=== PATIENT | male | born 1940 | race Caucasian/White ===

== ENCOUNTER 2021-03-13 02:57 | Emergency (ER) | payer OTHER ==
[2021-03-13] MEDS ORDERED: NA CHLORIDE 0.9% 1,000 ML ONE ×2 (03:27→07:54)
[2021-03-13 03:45] LABS: Absolute Lymphocytes (CBC) 0.1 K/uL (0.7-4.9); Basophils % 0.1 % (0-1.3); Hematocrit 48.3 % (39.6-49.0); Lymphocytes % 1.1 % (15.3-44.8); MPV 10.5 fL (7.6-11.3); RBC Red Blood Cell Count 5.35 M/uL (4.33-5.43)
[2021-03-13 03:49] LABS: Protime INR 1.3
--- NOTE | 2021-03-13 03:59 | EDPHYS ---
Physician Documentation [facility] Name: Gabriel Elizalde Age: 80 yrs Sex: Male : 1940 Arrival Date: 03/13/2021 Time: 02:59 Bed 8 Private MD: ED Physician Juvenal Welch HPI: 03/13 03:03 This 80 yrs old Male presents to ER via EMS with complaints of Dizziness, mh7 Fall Injury, Blood Pressure Problem. 03:03 The patient presents with dizziness, lightheadedness. mh7 03:04 Onset: The symptoms/episode began/occurred 2 day(s) ago. Context: occurred at home, mh7 occurred while the patient was sitting. Modifying factors: The symptoms are alleviated by nothing, the symptoms are aggravated by standing up. Associated signs and symptoms: Pertinent negatives: abdominal pain, agitation, ataxia, blurred vision, chest pain, combativeness, confusion, diaphoresis, focal weakness, head injury, headache, nausea, near-syncope, numbness, palpitations, seizure, shortness of breath, syncope, tingling, vomiting. Severity of symptoms: At their worst the symptoms were moderate last night, in the emergency department the symptoms are unchanged. Patient's baseline: Neuro: alert and fully oriented, Motor: no deficits, Ambulation: walks without assistance, Speech: normal. Historical: - Allergies: 03:03 PENICILLINS; bb 03:03 TETRACYCLINES; bb - Home Meds: 03:03 Furosemide Oral [Active]; losartan oral oral [Active]; bb - PMHx: 03:03 Hypertension; Asthma; Bronchitis; bb - PSHx: 03:03 prostate; bb - Immunization history:: Adult Immunizations unknown. - Social history:: Smoking status: unknown. ROS: 03:04 Constitutional: Negative for fever, chills, and weight loss, Eyes: Negative for injury, mh7 pain, redness, and discharge, ENT: Negative for injury, pain, and discharge, Neck: Negative for injury, pain, and swelling, Cardiovascular: Negative for chest pain, palpitations, and edema, Respiratory: Negative for shortness of breath, cough, wheezing, and pleuritic chest pain, Abdomen/GI: Negative for abdominal pain, nausea, vomiting, diarrhea, and constipation, Back: Negative for injury and pain, : Negative for injury, bleeding, discharge, and swelling, MS/Extremity: Negative for injury and deformity, Skin: Negative for injury, rash, and discoloration, Psych: Negative for depression, anxiety, suicide ideation, homicidal ideation, and hallucinations, Allergy/Immunology: Negative for hives, rash, and allergies, Endocrine: Negative for neck swelling, polydipsia, polyuria, polyphagia, and marked weight changes, Hematologic/Lymphatic: Negative for swollen nodes, abnormal bleeding, and unusual bruising. Exam: 03:04 Constitutional: This is a well developed, well nourished patient who is awake, alert, mh7 and in no acute distress. Head/Face: Normocephalic, atraumatic. Eyes: Pupils equal round and reactive to light, extra-ocular motions intact. Lids and lashes normal. Conjunctiva and sclera are non-icteric and not injected. Cornea within normal limits. Periorbital areas with no swelling, redness, or edema. Neck: Trachea midline, no thyromegaly or masses palpated, and no cervical lymphadenopathy. Supple, full range of motion without nuchal rigidity, or vertebral point tenderness. No Meningismus. Chest/axilla: Normal chest wall appearance and motion. Nontender with no deformity. No lesions are appreciated. Cardiovascular: Regular rate and rhythm with a normal S1 and S2. No gallops, murmurs, or rubs. Normal PMI, no JVD. No pulse deficits. Respiratory: Lungs have equal breath sounds bilaterally, clear to auscultation and percussion. No rales, rhonchi or wheezes noted. No increased work of breathing, no retractions or nasal flaring. Abdomen/GI: Soft, non-tender, with normal bowel sounds. No distension or tympany. No guarding or rebound. No evidence of tenderness throughout. Back: No spinal tenderness. No costovertebral tenderness. Full range of motion. Skin: Warm, dry with normal turgor. Normal color with no rashes, no lesions, and no evidence of cellulitis. MS/ Extremity: Pulses equal, no cyanosis. Neurovascular intact. Full, normal range of motion. Neuro: Awake and alert, GCS 15, oriented to person, place, time, and situation. Cranial nerves II-XII grossly intact. Motor strength 5/5 in all extremities. Sensory grossly intact. Cerebellar exam normal. Normal gait. Psych: Awake, alert, with orientation to person, place and time. Behavior, mood, and affect are within normal limits. Vital Signs: 03:00 BP 68 / 50; Pulse 103; Resp 16 S; Temp 98.9(A); Pulse Ox 90% on R/A; Weight 107.95 kg bb (R); Height 5 ft. 8 in. (172.72 cm) (R); Pain 0/10; 03:35 BP 79 / 53; Pulse 107; Resp 32 S; Pulse Ox 94% on NC; ad5 04:00 BP 56 / 44; Pulse 104; Resp 33; Pulse Ox 92% on NC; ad5 04:15 BP 59 / 39; Pulse 97; Resp 30; Pulse Ox 96% on 3 lpm NC; ad5 04:30 BP 61 / 47; Pulse 98; Resp 32; Pulse Ox 90% on NC; ad5 04:45 BP 86 / 54; Pulse 102; Resp 34; Pulse Ox 90% on NC; ad5 05:00 BP 88 / 60; Pulse 111; Resp 25; Temp 101.9; Pulse Ox 91% on NC; ad5 05:15 BP 83 / 61; Pulse 109; Resp 28 S; Pulse Ox 99% on NC; ad5 05:30 BP 80 / 61; Pulse 112; Resp 28 S; Pulse Ox 94% on 3 lpm NC; ad5 05:45 BP 79 / 50; Pulse 111; Resp 34 S; Pulse Ox 96% on 3 lpm NC; ad5 06:00 BP 75 / 50; Pulse 111; Resp 34 S; Pulse Ox 94% on NC; ad5 06:13 BP 88 / 54; Pulse 106; Resp 29; Temp 101.8(C); Pulse Ox 96% ; ea 06:15 BP 96 / 56; Pulse 106; Resp 30 S; Pulse Ox 96% on NC; ad5 06:30 BP 81 / 46; Pulse 106; Resp 26 S; Pulse Ox 96% on 3 lpm NC; ad5 07:00 BP 106 / 84; Pulse 106; Resp 24; Temp 101; Pulse Ox 91% on 3 lpm NC; ea 03:00 Body Mass Index 36.19 (107.95 kg, 172.72 cm) bb Procedures: 06:45 Central Line: the site was prepped with Betadine, in sterile fashion, a triple lumen mh7 catheter was inserted, in the right femoral vein, in 1 attempts. placement was verified, by blood return, the site was dressed with using sterile technique, the patient tolerated the procedure, well. MDM: 03:57 Differential diagnosis: generalized weakness, idiopathic dizziness, near-syncope, 7 syncope. Data reviewed: vital signs, nurses notes, EMS record, old medical records, lab test result(s), cardiac enzymes, CBC. Counseling: I had a detailed discussion with the patient and/or guardian regarding: the historical points, exam findings, and any diagnostic results supporting the discharge/admit diagnosis, lab results. Response to treatment: the patient's symptoms have mildly improved after treatment. 03:59 Patient medically screened. [facility] 06:45 Counseling: I had a detailed discussion with the patient and/or guardian regarding: the mh7 need to transfer to another facility, for higher level of care, No ICU beds available. 03/13 03:02 Order name: Basic Metabolic Panel [facility] 03/13 03:02 Order name: CBC with Diff [facility] 03/13 03:02 Order name: LFT's [facility] 03/13 03:02 Order name: Magnesium [facility] 03/13 03:02 Order name: NT PRO-BNP [facility] 03/13 03:02 Order name: PT-INR [facility] 03/13 03:02 Order name: Troponin (emerg Dept Use Only) [facility] 03/13 03:10 Order name: Blood Culture Adult (2) [facility] 03/13 03:10 Order name: Urine Culture [facility] 03/13 03:10 Order name: Influenza Screen (a \\T\\ B) [facility] 03/13 03:10 Order name: Lactate [facility] 03/13 03:10 Order name: COVID-19 : Document "Date of Symptom Onset" if Symptomatic. [facility] 03/13 03:14 Order name: Procalcitonin la1 03/13 03:23 Order name: [facility] 03/13 03:47 Order name: CBC with Automated Diff; Complete Time: 06:36 EDIA 03/13 06:20 Order name: Lipase [facility] 03/13 06:20 Order name: Basic Metabolic Panel; Complete Time: 06:36 EDIA 03/13 06:20 Order name: Liver (Hepatic) Function; Complete Time: 06:36 EDIA 03/13 06:20 Order name: Troponin (Emerg Dept Use Only); Complete Time: 06:36 EDMS 03/13 06:20 Order name: NT PRO-BNP; Complete Time: 06:36 EDMS 03/13 06:20 Order name: Magnesium; Complete Time: 06:36 EDMS 03/13 06:20 Order name: Manual Differential; Complete Time: 06:36 EDMS 03/13 06:20 Order name: Protime (+INR); Complete Time: 06:36 EDMS 03/13 06:20 Order name: Lactate; Complete Time: 06:36 EDMS 03/13 06:20 Order name: Procalcitonin; Complete Time: 06:36 EDMS 03/13 06:20 Order name: SARS-COV-2 RT PCR; Complete Time: 06:36 EDMS 03/13 06:23 Order name: Influenza Screen (A ; Complete Time: 06:36 EDMS 03/13 06:29 Order name: Lipase; Complete Time: 06:36 EDMS 03/13 06:56 Order name: Blood Culture [facility] 03/13 07:14 Order name: Lactate Sepsis 2 HR Follow-up [facility] 03/13 03:02 Order name: XRAY Chest (1 view) [facility] 03/13 03:02 Order name: EKG; Complete Time: 03:02 [facility] 03/13 03:02 Order name: Cardiac monitoring; Complete Time: 03:04 [facility] 03/13 03:02 Order name: EKG - Nurse/Tech; Complete Time: 03:04 [facility] 03/13 03:02 Order name: IV Saline Lock; Complete Time: 03:05 [facility] 03/13 03:02 Order name: Labs collected and sent; Complete Time: 03:05 [facility] 03/13 03:02 Order name: O2 Per Protocol; Complete Time: 03:05 [facility] 03/13 03:02 Order name: O2 Sat Monitoring; Complete Time: 03:05 [facility] 03/13 03:02 Order name: CT Head Brain wo Cont [facility] 03/13 03:29 Order name: CT Abd/Pelvis - Without Contrast [facility] Administered Medications: 03:30 Drug: NS 0.9% 1000 ml Route: IV; Rate: 1000 ml; Site: right wrist; ad5 06:24 Follow up: IV Status: Completed infusion; IV Intake: 1000ml ad5 03:50 Drug: NS 0.9% 1000 ml Route: IV; Rate: 1000 ml; Site: left antecubital; ad5 06:24 Follow up: IV Status: Completed infusion; IV Intake: 1000ml ad5 04:10 Drug: Rocephin (cefTRIAXone) 1 grams {Note: CVL R groin.} Route: IV; Rate: 1 calculated ad5 rate; Site: Other; 06:23 Follow up: Response: No adverse reaction; IV Status: Completed infusion ad5 04:10 Drug: Levophed (norepinephrine) (4 mg/250 mL D5W 4 mcg/min Route: IV; Rate: calculated ad5 rate; Site: left forearm; 07:11 Follow up: Response: No adverse reaction; IV Status: Infusion continued upon transfer ea 05:15 Drug: Tylenol 1000 mg Route: PO; ad5 06:35 Follow up: Response: No adverse reaction ad5 05:20 Drug: AZITHromycin 500 mg Route: IVPB; Infused Over: 1 hrs; Site: right femoral; ea 06:23 Follow up: Response: No adverse reaction; IV Status: Completed infusion ad5 07:03 Drug: Cefepime 1 grams Route: IVPB; Rate: 200 ml/hr; Infused Over: 30 mins; Site: right ea femoral; 07:11 Follow up: Response: No adverse reaction; IV Status: Completed infusion; IV Intake: ea 100ml 07:09 Drug: Flagyl (metroNIDAZOLE) 500 mg Volume: 100 ml; Route: IVPB; Rate: 200 ml/hr; ea Infused Over: 30 mins; Site: left hand; 07:23 Drug: LevaQUIN (levofloxacin) 500 mg Volume: 100 ml; Route: IVPB; Infused Over: 60 ea mins; Site: left forearm; Disposition: 03/13/21 06:48 Transfer ordered to [facility]. Diagnosis are Sepsis, Cholecystitis, Pneumonia, Acute Kidney Injury, Elevated Troponin. - Reason for transfer: Higher level of care. - Accepting physician is Dr. Cline. - Condition is Critical. - Problem is new. - Symptoms have improved. Signatures: Dispatcher [employer] EDMS Adrianna Little RN RN Rain Serrano RN RN hb Antunez, Elena, RN RN ea Holmes, Maurice, MD MD 7 Meek Roth ad5 Corrections: (The following items were deleted from the chart) 06:32 03:59 Hospitalization Ordered by Chadwick Prezas DO for Inpatient Admission. Preliminary [facility] diagnosis is Dehydration; Hypotension. Bed requested for Telemetry/MedSurg (Inpatient). Status is Inpatient Admission. Condition is Fair. Problem is new. Symptoms have improved. 7 07:24 06:48 03/13/2021 06:48 Transfer ordered to [facility]. ea Diagnosis is Sepsis; Cholecystitis; Pneumonia; Acute Kidney Injury; Elevated Troponin. Reason for transfer: Higher level of care. Accepting physician is Dr. Cline. Condition is Critical. Problem is new. Symptoms have improved. [facility] 07:44 07:24 03/13/2021 06:48 Transfer ordered to [facility]. hb Diagnosis is Sepsis; Cholecystitis; Pneumonia; Acute Kidney Injury; Elevated Troponin. Reason for transfer: Higher level of care. Accepting physician is Dr. Cline. Condition is Critical. Problem is new. Symptoms have improved. ea
--- NOTE | 2021-03-13 03:59 | ER ---
Nurse's Notes [facility] Name: Gabriel Elizalde Age: 80 yrs Sex: Male : 1940 Arrival Date: 03/13/2021 Time: 02:59 Bed 8 Private MD: Diagnosis: Sepsis;Cholecystitis;Pneumonia;Acute Kidney Injury;Elevated Troponin Presentation: 03/13 03:00 Chief complaint: EMS states: they were toned out for report of pt needing lift assist bb on arrival pt was hypotensive with SBP in the 60s. Coronavirus screen: pt is hypoxic on arrival sats 90% room air. Ebola Screen: No symptoms or risks identified at this time. Initial Sepsis Screen: Does the patient meet any 2 criteria? Systolic BP < 90 mmHg. HR > 90 bpm. Yes Does the patient have a suspected source of infection? No. Patient's initial sepsis screen is negative. Risk Assessment: Do you want to hurt yourself or someone else? Patient reports no desire to harm self or others. Onset of symptoms is unknown. 03:00 Method Of Arrival: [facility] bb 03:00 Acuity: LIZET 2 bb 03:05 Care prior to arrival: Medication(s) given: Normal saline infusion, 500 mL, IV bb initiated. 20 GA, in the right hand, Glucose check: 141. Historical: - Allergies: 03:03 PENICILLINS; bb 03:03 TETRACYCLINES; bb - Home Meds: 03:03 Furosemide Oral [Active]; losartan oral oral [Active]; bb - PMHx: 03:03 Hypertension; Asthma; Bronchitis; bb - PSHx: 03:03 prostate; bb - Immunization history:: Adult Immunizations unknown. - Social history:: Smoking status: unknown. Screenin:52 Abuse screen: Denies threats or abuse. Denies injuries from another. Nutritional ad5 screening: No deficits noted. Tuberculosis screening: No symptoms or risk factors identified. Fall Risk Fall in past 12 months (25 points). Secondary diagnosis (15 points) IV access (20 points). Ambulatory Aid- Crutches/Cane/Walker (15 pts). Gait- Weak (10 pts.). Mental Status- Oriented to own ability (0 pts). Total Mancilla Fall Scale indicates High Risk Score (45 or more points). Fall prevention measures have been instituted. Side Rails Up X 2 Frequent Obs/Assessments Occuring As available patient and family educated on Fall Prevention Program and Strategies. Assessment: 03:30 General: Appears ill, Behavior is calm, cooperative, appropriate for age. Pain: Denies ad5 pain. Neuro: Level of Consciousness is awake, alert, obeys commands, Oriented to person, place, time, situation, Appropriate for age System Administration Advisor are equal bilaterally Weakness Speech is normal, Facial symmetry appears normal, Pupils are PERRLA, Intact. Cardiovascular: Heart tones present Capillary refill < 3 seconds Patient's skin is warm and dry. Pulses are all present. Rhythm is regular. Cardiovascular: Respiratory: Reports cough that is productive, Airway is patent Trachea midline Respiratory effort is even, unlabored, Respiratory pattern is regular, symmetrical, tachypnea Sputum is thick, white Breath sounds are clear in right upper lobe, left upper lobe and right middle lobe Breath sounds are diminished in left posterior lower lobe, right posterior middle lobe and right posterior lower lobe. GI: Reports constipation, nausea. : No deficits noted. No signs and/or symptoms were reported regarding the genitourinary system. EENT: No deficits noted. No signs and/or symptoms were reported regarding the EENT system. Derm: Skin is intact, Skin is clammy, Skin is normal, Skin temperature is warm. 06:24 Reassessment: 03/13/21 0415 Pt with continued low BP, IV to L AC noted to have edema ad5 near site. Provider notified of pt need for additional IV access, at bedside for CVL placement at this time. Risks benefits explained to pt by provider, verbal consent by pt at bedside with RN x 2 witness for emergent CVL placement. 06:34 Reassessment: 03/13/21 0428 Pt levophed drip changed from IV site to L forearm to CVL R ad5 groin, titrated per protocol. 06:38 Reassessment: Pt cleaned of stool and brief applied. Repositioned in stretcher. Denies ad5 other needs or c/o at this time. Will continue to monitor. 06:38 Reassessment: 03/13/21 0325 Lab with critical lab value notification of K 2.8 and ad5 Lactic acid 5.6, read back/verified. Provider aware. Awaiting further orders. 07:22 Reassessment: Patient and/or family updated on plan of care and expected duration. Pain ea level reassessed. Life flight at facility for transport, report given to team. Pt left ED via stretcher per life flight team. Pt tolerating well. 07:39 Reassessment: Assisted flight medic with cleaning of very large liquid bowel movement hb clean up. Pt tolerated well. Vital Signs: 03:00 BP 68 / 50; Pulse 103; Resp 16 S; Temp 98.9(A); Pulse Ox 90% on R/A; Weight 107.95 kg bb (R); Height 5 ft. 8 in. (172.72 cm) (R); Pain 0/10; 03:35 BP 79 / 53; Pulse 107; Resp 32 S; Pulse Ox 94% on NC; ad5 04:00 BP 56 / 44; Pulse 104; Resp 33; Pulse Ox 92% on NC; ad5 04:15 BP 59 / 39; Pulse 97; Resp 30; Pulse Ox 96% on 3 lpm NC; ad5 04:30 BP 61 / 47; Pulse 98; Resp 32; Pulse Ox 90% on NC; ad5 04:45 BP 86 / 54; Pulse 102; Resp 34; Pulse Ox 90% on NC; ad5 05:00 BP 88 / 60; Pulse 111; Resp 25; Temp 101.9; Pulse Ox 91% on NC; ad5 05:15 BP 83 / 61; Pulse 109; Resp 28 S; Pulse Ox 99% on NC; ad5 05:30 BP 80 / 61; Pulse 112; Resp 28 S; Pulse Ox 94% on 3 lpm NC; ad5 05:45 BP 79 / 50; Pulse 111; Resp 34 S; Pulse Ox 96% on 3 lpm NC; ad5 06:00 BP 75 / 50; Pulse 111; Resp 34 S; Pulse Ox 94% on NC; ad5 06:13 BP 88 / 54; Pulse 106; Resp 29; Temp 101.8(C); Pulse Ox 96% ; ea 06:15 BP 96 / 56; Pulse 106; Resp 30 S; Pulse Ox 96% on NC; ad5 06:30 BP 81 / 46; Pulse 106; Resp 26 S; Pulse Ox 96% on 3 lpm NC; ad5 07:00 BP 106 / 84; Pulse 106; Resp 24; Temp 101; Pulse Ox 91% on 3 lpm NC; ea 03:00 Body Mass Index 36.19 (107.95 kg, 172.72 cm) bb ED Course: 02:59 Patient arrived in ED. bb 02:59 Juvenal Welch MD is Attending Physician. [facility] 03:02 Triage completed. bb 03:03 Arm band placed on Patient placed in an exam room, on a stretcher, on pulse oximetry. bb 03:04 Meek Roth is Primary Nurse. ad5 03:18 Patient has correct armband on for positive identification. Placed in gown. Bed in low ea position. Call light in reach. Side rails up X2. 03:35 No provider procedures requiring assistance completed. Inserted saline lock: 18 gauge ad5 in left antecubital area, using aseptic technique. Blood collected. Maintain EMS IV. Dressing intact. Good blood return noted. Site clean \T\ dry. Gauge \T\ site: 20g R wrist. 03:55 Oxygen administration via nasal cannula \T\ 2L/min Response to oxygen therapy: symptoms ea improved. 03:58 Chadwick Chi DO is Hospitalizing Provider. [facility] 04:18 Inserted saline lock: 20 gauge in left forearm, using aseptic technique. ea 04:28 Assisted provider with central line placement. Set up central line tray. Triple lumen ea line placed in right femoral. Line placed by Juvenal Welch MD Placement verified by blood return, Dressed with Tegaderm, Patient tolerated well. 04:38 Hernandez cath inserted, using sterile technique, 18 Fr., by in, balloon inflated, to ea gravity drainage, returned michael urine. Patient tolerated well. 05:15 IV discontinued, intact, bleeding controlled, No redness/swelling at site. Pressure ea dressing applied, right wrist and left AC IV. 06:20 initiated a transfer with Danni from the [facility] [place]. eb 06:35 connected the cut lace machine operator cellulose insulation helper for [facility] with Dr. Welch for patient eb transfer consultation. 06:47 administrative approval given Danni Holden Rn/ patient has been accepted to [facility] [address] [address] Bed 8/ Dr. Cline has accepted the patient in transfer/ Report to be called to the transfer center at [phone]. 06:52 [facility] called 9 minutes eta. eb 07:40 Primary Nurse role handed off by Meek Roth sv Administered Medications: 03:30 Drug: NS 0.9% 1000 ml Route: IV; Rate: 1000 ml; Site: right wrist; ad5 06:24 Follow up: IV Status: Completed infusion; IV Intake: 1000ml ad5 03:50 Drug: NS 0.9% 1000 ml Route: IV; Rate: 1000 ml; Site: left antecubital; ad5 06:24 Follow up: IV Status: Completed infusion; IV Intake: 1000ml ad5 04:10 Drug: Rocephin (cefTRIAXone) 1 grams {Note: CVL R groin.} Route: IV; Rate: 1 calculated ad5 rate; Site: Other; 06:23 Follow up: Response: No adverse reaction; IV Status: Completed infusion ad5 04:10 Drug: Levophed (norepinephrine) (4 mg/250 mL D5W 4 mcg/min Route: IV; Rate: calculated ad5 rate; Site: left forearm; 07:11 Follow up: Response: No adverse reaction; IV Status: Infusion continued upon transfer ea 05:15 Drug: Tylenol 1000 mg Route: PO; ad5 06:35 Follow up: Response: No adverse reaction ad5 05:20 Drug: AZITHromycin 500 mg Route: IVPB; Infused Over: 1 hrs; Site: right femoral; ea 06:23 Follow up: Response: No adverse reaction; IV Status: Completed infusion ad5 07:03 Drug: Cefepime 1 grams Route: IVPB; Rate: 200 ml/hr; Infused Over: 30 mins; Site: right ea femoral; 07:11 Follow up: Response: No adverse reaction; IV Status: Completed infusion; IV Intake: ea 100ml 07:09 Drug: Flagyl (metroNIDAZOLE) 500 mg Volume: 100 ml; Route: IVPB; Rate: 200 ml/hr; ea Infused Over: 30 mins; Site: left hand; 07:23 Drug: LevaQUIN (levofloxacin) 500 mg Volume: 100 ml; Route: IVPB; Infused Over: 60 ea mins; Site: left forearm; Intake: 06:24 IV: 1000ml; Total: 1000ml. ad5 06:24 IV: 1000ml; Total: 2000ml. ad5 07:11 IV: 100ml; Total: 2100ml. ea Outcome: 03:51 Discharged to See paper charting for further care/tx ad5 03:59 Decision to Hospitalize by Provider. 7 06:48 ER care complete, transfer ordered by MD. [facility] 07:17 Transferred by helicopter to [facility], Transfer form completed. ad5 07:17 Condition: stable 07:17 Instructed on the need for admit. 07:24 Patient left the ED. ea 07:44 Patient left the ED. hb Signatures: Gudelia Montelongo, RN RN Adrianna Lewis RN RN bb Baxter, Heather, RN RN Jazzy Gee RN RN ea Botello, Elizabeth eb Holmes, Maurice, MD MD [facility] Meek Roth ad5 Corrections: (The following items were deleted from the chart) 06:29 03:35 No provider procedures requiring assistance completed. ad5 ea 07:07 06:20 initiated a transfer with Sosa from the [facility]. eb eb
[2021-03-13 04:21] LABS: Albumin 3.4 g/dL (3.4-5.0); Bilirubin Direct 1.1 mg/dL (0-0.2); Bilirubin Total 1.9 mg/dL (0.2-1.0); Potassium 2.8 mmol/L (3.5-5.1); Protein, Total 7.5 g/dL (6.4-8.2); Troponin (Emerg Dept Use Only) 0.48 ng/mL (0.0-0.045)
[2021-03-13] MEDS ORDERED: NOREPINEPHRINE 4mg/D5W 250mL 4 MG/250 ML BAG IV ONE (04:27)
[2021-03-13 04:43] LABS: Blood Morphology Comment NOT SEEN (NOT SEEN); Platelet Estimate ADEQ
[2021-03-13] MEDS ORDERED: CEFTRIAXONE 1000 MG/VIAL ONE (05:16)
[2021-03-13] MEDS ORDERED: AZITHROMYCIN 500 MG INJ IVPB ONE (05:16)
[2021-03-13] MEDS ORDERED: NA CHLORIDE 0.9% 250 ML ONE (05:16)
[2021-03-13] MEDS ORDERED: NA CHLORIDE 0.9% 50 ML ONE (05:16)
[2021-03-13] MEDS ORDERED: ACETAMINOPHEN 500 MG TAB PO ONE (05:33)
[2021-03-13] MEDS ORDERED: AZITHROMYCIN IV 500 MG in NA CHLORIDE 0.9% 250 ML IVPB ONE (05:34)
[2021-03-13] MEDS ORDERED: CEFTRIAXONE/SWI 1gm 1 GM/10 ML SYR IV ONE (05:34)
[2021-03-13] MEDS ORDERED: VASOPRESSIN IV PRN (07:07)
[2021-03-13] MEDS ORDERED: NA CHLORIDE 0.9% IV PRN (07:07)
[2021-03-13] MEDS ORDERED: METRONIDAZOLE 500mg IVPB 500 MG/100 ML BAG IV ONE (07:14)
[2021-03-13] MEDS ORDERED: Levofloxacin500mg IV 500 MG/100 ML BAG IV ONE (07:14)
[2021-03-13] MEDS ORDERED: CEFEPIME/SWI 1gm 10 ML ONE (07:14)
[2021-03-13] MEDS ORDERED: NA CHLORIDE 0.9% 100 ML ONE (07:15)
[2021-03-13 07:56] VITALS: BP 106/84; TEMP 101; O2SAT 91
--- NOTE | 2021-03-13 14:45 | RAD REPORT ---
EXAM DESCRIPTION: Chest Single View CLINICAL HISTORY: Dizziness COMPARISON: None. FINDINGS: Single frontal radiograph view of the chest. Cardiomediastinal silhouette: Atherosclerotic calcification of the thoracic aorta. Leads overlie the chest. Lungs: Patchy bibasilar opacities. No pneumothorax or large effusion. Bones: Degenerative change of the spine. Upper abdomen: No abnormality identified. IMPRESSION: 1. Patchy bibasilar opacities may be related to developing pneumonic process or atelecta sis. Electronically signed by: Willian Green 03/13/2021 4:05 AM CDT Due to temporary technical issues with the PACS/Fluency reporting system, reports are being signed by the in house radiologists without review as a courtesy to insure prompt reporting. The interpreting radiologist is fully responsible for the content of the report.
--- NOTE | 2021-03-13 16:30 | EKG ---
Test Date: 2021-03-13 Test Time: 02:59:54 Professor Of Industrial Technology: JALEESA MEASUREMENT RESULTS: Intervals: Rate: 104 [place]: 200 QRSD: 90 QT: 336 QTc: 441 [place]: P: 67 [place]: 200 QRS: -54 T: 63 INTERPRETIVE STATEMENTS: Sinus tachycardia Left axis deviation Inferior infarct, age undetermined Abnormal ECG Compared to ECG 04/17/2013 07:34:48 Left-axis deviation now present Myocardial infarct finding now present Sinus bradycardia no longer present Left anterior fascicular block no longer present Electronically Signed On 03-13-21 16:29:40 CDT by Jose Duarte
--- NOTE | 2021-03-13 16:32 | RAD REPORT ---
EXAM DESCRIPTION: CT Abdomen and Pelvis COMPARISON: None. CLINICAL HISTORY: [facility] MAIN Abd pain;Constipation TECHNIQUE: CT of the abdomen and pelvis was acquired with IV contrast material. Coronal and sagitt al reconstructions were obtained. Automated exposure control was utilized on this examination as a dose lowering technique. FINDINGS: Lung bases: Bibasilar consolidations are present. Liver: Visualized portions of the liver are normal. The superior right liver is out of the field-of-v iew. Gallbladder and biliary: Small stones and sludge are present. Gallbladder wall thickening is present with adjacent fat stranding. Unremarkable biliary tree. Pancreas: Normal. Spleen: Normal. Adrenal glands: Normal adrenal glands. Kidneys: A 1.8 cm right renal cyst is noted. Normal left kidney. Stomach and Small Bowel: Normal stomach. Mild wall thickening of the proximal duodenum is likely reac tive. The remainder of the small bowel is unremarkable. Urinary bladder: Decompressed urinary bladder with anterior right portion herniating into the right i nguinal hernia. Prostate/Male Urogenital: Enlarged prostate measuring 5.4 cm mediolateral. Colon and Appendix: Moderate sigmoid colon diverticulosis. No evidence of appendicitis. Retroperitoneum and lymph nodes: Normal. Vascular: Moderate multivessel calcified atherosclerosis. Peritoneal cavity: No ascites or free air. Musculoskeletal and soft tissues: Moderate sized right inguinal hernia containing fat and a portion o f the bladder. Thoracolumbar spondylosis. No aggressive bone lesions. No compression fracture. IMPRESSION: 1. Distended gallbladder with stones, wall thickening and adjacent fat stranding, consis tent with acute cholecystitis. 2. Wall thickening of the proximal duodenum is likely reactive. 3. The urinary bladder partially herniates into the moderate sized right inguinal hernia. 4. Prostatic hypertrophy. 5. Bibasilar consolidations may represent atelectasis, edema, or pneumonia. 6. Moderate sigmoid diverticulosis. 7. Moderate atherosclerosis. Electronically signed by: Jaime Marrero MD 03/13/2021 4:52 AM CDT Due to temporary technical issues with the PACS/Fluency reporting system, reports are being signed by the in house radiologists without review as a courtesy to insure prompt reporting. The interpreting radiologist is fully responsible for the content of the report.
--- NOTE | 2021-03-13 16:50 | RAD REPORT ---
EXAM DESCRIPTION: CT Head COMPARISON: None. CLINICAL HISTORY: [facility] MAIN DIZZINESS TECHNIQUE: Axial images were obtained from skull base to vertex without intravenous contrast. Imag es viewed on bone and brain windows. Multiplanar reformats were performed. Automated exposure contr ol was utilized on this examination as a dose lowering technique. FINDINGS: Brain parenchyma, ventricles, dura, meninges, and extra-axial spaces: Mild generalized cer ebral and cerebellar volume loss is present. Mild hypodensities in the subcortical white matter of rima th hemispheres are nonspecific but likely relate to chronic small vessel disease. No acute intracrani al hemorrhage or abnormal extra-axial fluid collections. Vascular structures: Intracranial atherosclerosis is present. Calvarium, mastoid air cells, paranasal sinuses and orbits: The calvarium is normal. A 1.5 cm subcuta neous cyst of the left posterior scalp likely represents a sebaceous cyst. The mastoid air cells are clear. Small left maxillary mucosal retention cyst or polyp. Orbital structures are unremarkable. IMPRESSION: 1. No acute intracranial abnormality. 2. Mild senescent changes. Electronically signed by: Jaime Marrero MD 03/13/2021 4:45 AM CDT Due to temporary technical issues with the PACS/Fluency reporting system, reports are being signed by the in house radiologists without review as a courtesy to insure prompt reporting. The interpreting radiologist is fully responsible for the content of the report.
== END 2021-03-13 07:44 | disposition short-term general hospital (02) ==
LOC: ER 02:57
PROC: 06HM33Z Insertion of Infusion Device into Right Femoral Vein, Percutaneous Approach (ICD-10-PCS; principal; 2021-03-13)
DX: A41.9 Sepsis, unspecified organism (principal); K81.9 Cholecystitis, unspecified; N17.9 Acute kidney failure, unspecified; J18.9 Pneumonia, unspecified organism; R77.8 Other specified abnormalities of plasma proteins; I10 Essential (primary) hypertension; Z88.0 Allergy status to penicillin; Z88.1 Allergy status to other antibiotic agents; Z20.822 Contact with and (suspected) exposure to COVID-19
CPT/HCPCS: 93005; 87040 ×2; 85025; 80048; 36415; 83735; 87205 ×3; 85610; 80076; 83605 ×2; 84484; 83690; 84145; 83880; 87804 ×2; 70450; 74176; 71045; 36556; U0003; J0456; J0692; J7050; J7030 ×2

== ENCOUNTER 2022-05-27 11:55 | Emergency (ER) | payer OTHER ==
--- NOTE | 2022-05-27 14:43 | RAD REPORT ---
EXAM DESCRIPTION: CTAbdomen Pelvis Wo Contrast - 05/27/2022 2:25 pm CLINICAL HISTORY: hernia COMPARISON: Abdomen Pelvis Wo Contrast dated 03/13/2021; CT ABDOMEN PELVIS WO CONTRAST dated 11/22/19 10 TECHNIQUE: CT of the abdomen and pelvis was performed. All CT scans are performed using dose optimization technique as appropriate and may include automated exposure control or mA/KV adjustment according to patient size. FINDINGS: Lower chest: Multi-vessel coronary artery disease. Liver: No acute abnormality or suspicious lesions. Biliary: No biliary ductal dilatation. Cholecystectomy Stomach: No significant focal abnormality. Duodenum: No significant focal abnormality. Pancreas: No significant abnormality. Spleen: No significant abnormality. Adrenal: No suspicious lesions. Kidney/ureter: No hydronephrosis. No renal calculi. Low-density right renal lesion which is likely a cyst. Retroperitoneum: No retroperitoneal adenopathy. Vascular: No aneurysm. Bowel: A large sized small bowel containing right inguinal hernia is present.. This extends into the scrotum and has increased in size since 03/13/2021. No bowel obstruction identified. Diverticulosis i s present. Peritoneum: Mild mesenteric edema associated with the small bowel containing right inguinal hernia. Bladder: Grossly unremarkable. Reproductive: Prostatomegaly. TURP defect. Bones: No acute fracture. Multilevel degenerative changes are present in the spine. Other: n/a IMPRESSION: Interval increase in size of a now large right inguinal hernia which contains small robbie l and extends down into the scrotum. No bowel obstruction. Mild associated mesenteric edema which is nonspecific.
--- NOTE | 2022-05-27 15:43 | EDPHYS ---
Physician Documentation [facility] Name: Gabriel Elizalde Age: 81 yrs Sex: Male : 1940 Arrival Date: 05/27/2022 Time: 12:03 Bed 28 Private MD: ED Physician Naeem Reardon HPI: 05/27 16:28 This 81 yrs old Male presents to ER via EMS with complaints of Hernia. kb 16:28 The patient presents with hernia. Onset: The symptoms/episode began/occurred 1 year(s) kb ago, and became worse 6 week(s) ago. The symptoms do not radiate. Associated signs and symptoms: none. The symptoms are described as intermittent. Modifying factors: The symptoms are alleviated by nothing, the symptoms are aggravated by nothing. The patient has experienced similar episodes in the past, multiple times. The patient has not recently seen a physician. Pt reports he developed an inguinal hernia one year ago. States it has been protruding more in the last 6 weeks. States he is able to push it back in, but when it came out today he thought he should come get it looked at since it has been coming out so much. Historical: - Allergies: 13:01 PENICILLINS; bm7 13:01 TETRACYCLINES; bm7 - Home Meds: 13:01 Furosemide Oral [Active]; losartan Oral [Active]; bm7 - PMHx: 13:01 Asthma; Bronchitis; Hypertension; hernia; bm7 - PSHx: 13:01 Cholecystectomy; Hernia repair; bm7 - Immunization history:: Adult Immunizations up to date, Client reports having NOT received the Covid vaccine. - Social history:: Smoking status: Patient denies any tobacco usage or history of. ROS: 16:27 Constitutional: Negative for fever, chills, and weight loss. kb 16:27 Abdomen/GI: Positive for right inguinal hernia, Negative for abdominal pain, nausea, vomiting, and diarrhea. 16:27 All other systems are negative. Exam: 16:27 Constitutional: This is a well developed, well nourished patient who is awake, alert, kb and in no acute distress. Head/Face: Normocephalic, atraumatic. ENT: Moist Mucous membranes Cardiovascular: Regular rate and rhythm with a normal S1 and S2. No gallops, murmurs, or rubs. No pulse deficits. Respiratory: Respirations even and unlabored. No increased work of breathing. Talking in full sentences Abdomen/GI: Soft, non-tender. No distention Skin: Warm, dry with normal turgor. Normal color. MS/ Extremity: Pulses equal, no cyanosis. Neurovascular intact. Full, normal range of motion. Neuro: Awake and alert, GCS 15, oriented to person, place, time, and situation. Moves all extremities. Normal gait. Psych: Awake, alert, with orientation to person, place and time. Behavior, mood, and affect are within normal limits. 16:27 Abdomen/GI: Hernia: noted in the right inguinal area, incarceration, is not appreciated, tenderness, is not appreciated. Vital Signs: 12:59 BP 138 / 91; Pulse 76; Resp 16; Temp 97.1(TE); Pulse Ox 100% on R/A; Weight 86.18 kg bm7 (R); Height 5 ft. 8 in. (172.72 cm); Pain 7/10; 15:03 BP 148 / 75; Pulse 69; Resp 18; Pulse Ox 100% on R/A; eh3 12:59 Body Mass Index 28.89 (86.18 kg, 172.72 cm) bm7 MDM: 13:11 Patient medically screened. kb 16:26 Data reviewed: vital signs, nurses notes. Data interpreted: Pulse oximetry: on room air kb is 100 %. Interpretation: normal. Counseling: I had a detailed discussion with the patient and/or guardian regarding: the historical points, exam findings, and any diagnostic results supporting the discharge/admit diagnosis, radiology results, the need for outpatient follow up, a general surgeon, to return to the emergency department if symptoms worsen or persist or if there are any questions or concerns that arise at home. 16:27 ED course: Hernia easily reduced without pain. . kb 05/27 14:45 Order name: CT; Complete Time: 14:45 EDMS Administered Medications: No medications were administered Disposition: 18:48 Co-signature as Attending Physician, Naeem Reardon MD. rn Disposition Summary: 05/27/22 15:42 Discharge Ordered Location: Home kb Condition: Stable kb Diagnosis - Unilateral inguinal hernia, without obstruction or gangrene, recurrent kb Followup: kb - With: Emergency Department - When: As needed - Reason: Worsening of condition Followup: kb - With: Private Physician - When: 2 - 3 days - Reason: Recheck today's complaints, Continuance of care, Re-evaluation by your physician Discharge Instructions: - Discharge Summary Sheet kb - Inguinal Hernia, Adult, [id number] kb Forms: - Medication Reconciliation Form kb - Thank You Letter kb - Antibiotic Education kb - Prescription Opioid Use kb Signatures: Shannon London, MARISOL-C MARISOL-Naeem Ojeda MD MD rn McCarthy, Brittany, RN RN bm7
--- NOTE | 2022-05-27 15:43 | ER ---
Nurse's Notes [facility] Name: Gabriel Elizalde Age: 81 yrs Sex: Male : 1940 Arrival Date: 05/27/2022 Time: 12:03 Bed 28 Private MD: Diagnosis: Unilateral inguinal hernia, without obstruction or gangrene, recurrent Presentation: 05/27 12:59 Chief complaint: EMS states: He was standing and his inguinal hernia popped out he said bm7 and he was unable to push it back in and he wants it checked out. Coronavirus screen: At this time, the client does not indicate any symptoms associated with coronavirus-19. Ebola Screen: No symptoms or risks identified at this time. Initial Sepsis Screen: Does the patient meet any 2 criteria? No. Patient's initial sepsis screen is negative. Does the patient have a suspected source of infection? No. Patient's initial sepsis screen is negative. Risk Assessment: Do you want to hurt yourself or someone else? Patient reports no desire to harm self or others. Onset of symptoms was May 27, 2022. 12:59 Method Of Arrival: EMS: [facility] bm7 12:59 Acuity: LIZET 3 bm7 Triage Assessment: 13:01 General: Appears in no apparent distress. uncomfortable, well groomed, well developed, bm7 Behavior is calm, cooperative, appropriate for age. Pain: Complains of pain in groin. EENT: No deficits noted. No signs and/or symptoms were reported regarding the EENT system. Neuro: No deficits noted. Cardiovascular: No deficits noted. Respiratory: No deficits noted. GI: Abdomen is round non-distended, Parent/caregiver reports the patient having swelling to the side of his right testicle due to an inguinal hernia. : Reports pain in right testicle, Denies inability to void. Derm: No deficits noted. No signs and/or symptoms reported regarding the dermatologic system. Musculoskeletal: No deficits noted. No signs and/or symptoms reported regarding the musculoskeletal system. Historical: - Allergies: 13:01 PENICILLINS; bm7 13:01 TETRACYCLINES; bm7 - Home Meds: 13:01 Furosemide Oral [Active]; losartan Oral [Active]; bm7 - PMHx: 13:01 Asthma; Bronchitis; Hypertension; hernia; bm7 - PSHx: 13:01 Cholecystectomy; Hernia repair; bm7 - Immunization history:: Adult Immunizations up to date, Client reports having NOT received the Covid vaccine. - Social history:: Smoking status: Patient denies any tobacco usage or history of. Screenin:15 Abuse screen: Denies threats or abuse. Denies injuries from another. Nutritional eh3 screening: No deficits noted. Tuberculosis screening: No symptoms or risk factors identified. Fall Risk None identified. Assessment: 15:14 General: Appears in no apparent distress. comfortable, Behavior is calm, cooperative, eh3 appropriate for age. 15:15 Pain: Complains of pain in right lower quadrant Pain radiates to pelvis Pain currently eh3 is 3 out of 10 on a pain scale. Neuro: Level of Consciousness is awake, alert, obeys commands, Oriented to person, place, time, situation. Cardiovascular: Capillary refill < 3 seconds Patient's skin is warm and dry. Respiratory: Airway is patent Respiratory effort is even, unlabored. GI: Abdomen is flat, non-distended. : No signs and/or symptoms were reported regarding the genitourinary system. EENT: No signs and/or symptoms were reported regarding the EENT system. Derm: No signs and/or symptoms reported regarding the dermatologic system. Musculoskeletal: No signs and/or symptoms reported regarding the musculoskeletal system. Vital Signs: 12:59 BP 138 / 91; Pulse 76; Resp 16; Temp 97.1(TE); Pulse Ox 100% on R/A; Weight 86.18 kg bm7 (R); Height 5 ft. 8 in. (172.72 cm); Pain 7/10; 15:03 BP 148 / 75; Pulse 69; Resp 18; Pulse Ox 100% on R/A; eh3 12:59 Body Mass Index 28.89 (86.18 kg, 172.72 cm) bm7 ED Course: 12:03 Patient arrived in ED. rg4 13:01 Triage completed. bm7 13:01 Arm band placed on right wrist. bm7 13:06 Shannon London FNP-C [facility]. kb 13:06 Naeem Reardon MD is Attending Physician. kb 15:00 Mabel Bose RN is Primary Nurse. eh3 15:15 Patient has correct armband on for positive identification. Placed in gown. Bed in low eh3 position. Call light in reach. Side rails up X2. Adult w/ patient. Client placed on continuous cardiac and pulse oximetry monitoring. NIBP monitoring applied. Door closed. Noise minimized. Lights dimmed. Warm blanket given. 16:05 No provider procedures requiring assistance completed. IV discontinued, intact, eh3 bleeding controlled, No redness/swelling at site. Pressure dressing applied. Administered Medications: No medications were administered Medication: 16:05 VIS not applicable for this client. eh3 Outcome: 15:42 Discharge ordered by MD. velásquez 16:05 Discharged to home ambulatory. eh3 16:05 Condition: stable 16:42 Discharge instructions given to patient, family, Instructed on discharge instructions, eh3 follow up and referral plans. Demonstrated understanding of instructions, follow-up care. 16:42 Patient left the ED. eh3 Signatures: Shannon London, SOCIAL WORKER-C SOCIAL WORKER-Gayatri Jha rg4 Kimberley Acosta, RN RN bm7 Mabel Bose RN RN eh3 Corrections: (The following items were deleted from the chart) 15:17 15:11 General: Appears in no apparent distress. comfortable, Behavior is calm, eh3 cooperative, appropriate for age, eh3 15:17 15:15 General: Appears in no apparent distress. comfortable, Behavior is calm, eh3 cooperative, appropriate for age, eh3
[2022-05-27 17:39] VITALS: TEMP 97.1; O2SAT 100
[2022-05-27 17:41] VITALS: BP 148/75
== END 2022-05-27 16:42 | disposition home or self-care (01) ==
LOC: ER 11:55
DX: K40.91 Unilateral inguinal hernia, without obstruction or gangrene, recurrent (principal); I10 Essential (primary) hypertension; Z88.1 Allergy status to other antibiotic agents; Z88.0 Allergy status to penicillin
CPT/HCPCS: 74176; 99283

== ENCOUNTER 2022-06-16 08:00 | Day surgery (SDC) | payer OTHER ==
[2022-06-11 15:11] LABS: Absolute Lymphocytes (CBC) 1.2 K/uL (0.7-4.9); Hematocrit 42.2 % (39.6-49.0); Lymphocytes % 16.4 % (15.3-44.8); MCV 92.8 fL (80-100); MPV 9.4 fL (7.6-11.3); RBC Red Blood Cell Count 4.55 M/uL (4.33-5.43)
--- NOTE | 2022-06-11 15:19 | RAD REPORT ---
EXAM DESCRIPTION: RAD - Chest Pa And Lat (2 Views) - 06/11/2022 3:14 pm CLINICAL HISTORY: Pre op pending hernia surgery Chest pain. COMPARISON: Chest Single View dated 03/13/2021; CHEST SINGLE VIEW dated 04/16/2013; CHEST SINGLE VIEW dated 03/24/2013; CHEST SINGLE VIEW dated 03/23/2013 TECHNIQUE: PA and lateral views of the chest were obtained. FINDINGS: The lungs are hyperexpanded compatible with COPD. The heart is upper limit of normal in si ze. No fracture or aggressive bony process. IMPRESSION: COPD without acute process identified.
[2022-06-11 15:25] LABS: Potassium 4.4 mmol/L (3.5-5.1)
[2022-06-11 15:42] LABS: SARS-CoV-2 Antigen Rapid Res Negative (Negative)
[2022-06-16] MEDS ORDERED: CEFAZOLIN SODIUM 1 GM/VIAL ONE (08:51)
[2022-06-16] MEDS ORDERED: Ringers Lactate 1,000 ML IV ONE (08:51)
[2022-06-16] MEDS ORDERED: MIDAZOLAM HCL 2 MG/2 ML INJ ONE (09:26)
[2022-06-16] MEDS ORDERED: propofoL 200 MG/20 ML VIAL IV ONE (09:36)
[2022-06-16] MEDS ORDERED: FENTANYL CITR 100 MCG/2 ML ONE (09:37)
[2022-06-16] MEDS ORDERED: ROCURONIUM 50 MG/5 ML VIAL IV ONE (09:37)
[2022-06-16] MEDS ORDERED: ONDANSETRON 4 MG/2 ML VIAL ONE (09:38)
[2022-06-16] MEDS ORDERED: EPHEDRINE SULF 50 MG/ML VIAL ONE (09:51)
[2022-06-16] MEDS ORDERED: dexAMETHasone 4 MG/ML VIAL ONE (10:01)
[2022-06-16] MEDS ORDERED: GLYCOPYRROLATE 0.2 MG/ML SYR ONE (10:13)
[2022-06-16] MEDS ORDERED: NEOSTIGMINE 1 MG/ML -10 ML VIAL ONE (10:13)
[2022-06-16] MEDS ORDERED: HYDROCODONE/APAP 7.5/325 MG TAB PO PRN (10:18)
--- NOTE | 2022-06-16 10:22 | P.OP ---
Date of Service: 06/16/22 Preop diagnosis: Right inguinal hernia Postop diagnosis: Same Procedure performed: Repair of right inguinal hernia Surgeon: Guido Mojica MD Harvest Manager: None Estimated blood loss: Minimal Specimen: Hernia sac Findings: As above Anesthesia: General Complications: None Drains: None Fluids and blood products: Not applicable Disposition: Recovery room Operative note: Patient brought to the OR and placed in the supine position. General anesthesia begun. Patient prepped and draped in the usual sterile fashion. In the right groin was, 0.5% Marcaine infiltrated locally for postop pain control in a field block fashion. 15 blade used to make a 4 cm incision in the right groin. Subcutaneous tissue divided. Isaiah's fascia identified and divided. The aponeurosis of the external abdominal oblique was greatly attenuated. The hernia sac and cord structures were present right in the middle of the wound. Cord was skeletonized. A large indirect sac was identified. It was dissected free from the cord structures with sharp and blunt dissection. Ilioinguinal nerve was identified and retracted out of field of dissection. A high ligation of the sac was done. #1 Prolene suture ligature as well as a freehand tie was used tie off the base of the hernia sac. Hernia sac was excised and sent to pathology as specimen. Then a large Marlex mesh plug placed in the internal ring and secured with VersaTack stapler. Onlay mesh was placed on the inguinal floor and secured medially to the pubic tubercle, superiorly to the conjoined tendon, inferiorly to the shelving edge and laterally to each other. There was no evidence of bleeding or noted. Cord structures and ilioinguinal nerve placed back in anatomic location. Then 3-0 chromic used to reapproximate Isaiah's fascia. And speedy used to close skin. Sterile dressing applied. Patient awakened and taken to recovery room in good general condition. CC:
[2022-06-16 10:38] VITALS: O2SAT 100
[2022-06-16 10:52] VITALS: TEMP 97.4
[2022-06-16 12:33] VITALS: BP 114/53
== END 2022-06-16 12:21 | disposition home or self-care (01) ==
LOC: PRE 08:00 → OR 12:21
PROVIDERS: ATTEND Surgery
PROC: 0YU50JZ Supplement Right Inguinal Region with Synthetic Substitute, Open Approach (ICD-10-PCS; principal; 2022-06-16 09:15)
DX: K40.90 Unilateral inguinal hernia, without obstruction or gangrene, not specified as recurrent (principal); Z20.822 Contact with and (suspected) exposure to COVID-19
CPT/HCPCS: 85025; 80048; 36415; 88302; 71046; 87811; 49505; J2704; J1100; J2710; J3010; J7120; J2405; J0690; J2250

== ENCOUNTER 2025-01-05 05:33 | Observation (INO) | payer OTHER ==
[2025-01-05] MEDS ORDERED: ONDANSETRON 4 MG/2 ML VIAL ONE (05:48)
[2025-01-05] MEDS ORDERED: FAMOTIDINE 20 MG/2 ML VIAL IV ONE (05:49)
[2025-01-05 06:08] LABS: Absolute Eosinophils 0.1 K/uL (0-0.5); Absolute Lymphocytes (CBC) 0.7 K/uL (0.7-4.9); Absolute Monocytes 1.2 K/uL (0.1-1.3); Absolute Neutrophil 9.9 K/uL (1.8-8.0); Basophils % 0.3 % (0-1.3); Eosinophils % 0.7 % (0-4.4); Hematocrit 40.6 % (39.6-49.0); Lymphocytes % 5.5 % (15.3-44.8); MCH 32.4 pg (27.0-35.0); MCHC 34.6 g/dL (32.0-36.0); MCV 93.6 fL (80-100); MPV 9.8 fL (7.6-11.3); Neutrophils % 83.5 % (41.7-73.7); Nucleated Red Blood Cells % 0.1 % (0-0); Platelets 139 thou/uL (152-406); RBC Red Blood Cell Count 4.33 M/uL (4.33-5.43); Red Cell Distribution Width 14.4 % (12.1-15.2)
--- NOTE | 2025-01-05 06:49 | EDPHYS ---
Physician Documentation [facility] Name: Gabriel Elizalde Age: 84 yrs Sex: Male : 1940 Arrival Date: 01/05/2025 Time: 05:33 Bed 3 Private MD: ED Physician Oscar Aldridge HPI: 01/05 05:41 This 84 yrs old Male presents to ER via Unassigned with complaints of Fall Injury, Near cp Syncope, Chest Pressure. 05:41 The patient has experienced syncope, lost consciousness. Onset: The symptoms/episode cp began/occurred this morning. Duration: This was a single episode, that lasted an unknown period of time. Context: occurred at home, occurred while the patient was walking, Just prior to the episode the patient experienced chest pain. Associated injury: Head/face: forehead, abrasion, contusion, Right lower extremity: right knee, abrasion, contusion, pain. Associated signs and symptoms: Pertinent positives: abdominal pain, chest pain, dizziness. Historical: - Allergies: 05:42 PENICILLINS; lg3 05:42 TETRACYCLINES; lg3 - Home Meds: 05:42 losartan Oral [Active]; clonazepam Oral [Active]; lg3 - PMHx: 05:42 Asthma; Bronchitis; Hernia; Hypertension; lg3 - PSHx: 05:42 Cholecystectomy; hernia repair; lg3 - Immunization history:: Adult Immunizations up to date. - Infectious Disease History:: Denies. - Social history:: Smoking status: Patient denies any tobacco usage or history of. Patient/guardian denies using alcohol, street drugs. ROS: 05:43 Constitutional: Negative for body aches, chills, fever, cp 05:43 Cardiovascular: Positive for chest pain, 05:43 Respiratory: Negative for cough, shortness of breath, wheezing, 05:43 Abdomen/GI: Positive for abdominal pain, nausea, Exam: 05:45 ECG was reviewed by the Attending Physician. cp 05:47 Constitutional: The patient appears in no acute distress, alert, awake, cp non-diaphoretic, non-toxic, well developed, well nourished, 05:47 Head/face: Noted is abrasion(s), that are mild, of the forehead and nose, cp 05:47 Eyes: Periorbital structures: appear normal, Pupils: equal, round, and reactive to light and accomodation, Extraocular movements: intact throughout, Conjunctiva: normal, no exudate, no injection, Sclera: no appreciated abnormality, Lids and lashes: appear normal, bilaterally, 05:47 ENT: External ear(s): are unremarkable, Nose: Nasal septum: is midline, bleeding, is not appreciated, Mouth: Lips: moist, Oral mucosa: moist, Posterior pharynx: Airway: no evidence of obstruction, patent, 05:47 Chest/axilla: Inspection: normal, Palpation: crepitus, is not appreciated, tenderness, is not appreciated, 05:47 Cardiovascular: Rate: normal, Rhythm: regular, Edema: is not appreciated, JVD: is not appreciated, 05:47 Respiratory: the patient does not display signs of respiratory distress, Respirations: normal, no use of accessory muscles, no retractions, labored breathing, is not present, Breath sounds: are clear throughout, no decreased breath sounds, no stridor, no wheezing, 05:47 Abdomen/GI: Inspection: abdomen appears normal, Palpation: abdomen is soft and non-tender, in all quadrants, 05:47 Musculoskeletal/extremity: Joints: the right knee displays painful range of motion, tenderness, 05:47 Neuro: Orientation: to person, place \T\ time. Mentation: is normal, Motor: moves all fours, Vital Signs: 05:38 BP 125 / 47; Pulse 72; Resp 16 S; Temp 97.5(O); Pulse Ox 100% on R/A; Weight 85.73 kg; lg3 Height 5 ft. 9 in. (R); Pain 2/10; 06:04 BP 116 / 56; Pulse 68; Resp 16 S; Pulse Ox 99% on R/A; lg3 08:00 BP 136 / 76; Pulse 84; Resp 15; Pulse Ox 97% on R/A; hb 05:38 Body Mass Index 27.91 (85.73 kg, 175.26 cm) lg3 05:38 Pain Scale: Adult lg3 MDM: 05:39 Medical Screening Exam initiated cp 06:00 Differential Diagnosis: aortic aneurysm, cardiac arrhythmia, drug effect, GI bleed, cp idiopathic syncope, seizure, sepsis, vasovagal episode. 06:40 Differential diagnosis: abrasion, closed head injury, contusion, fracture, laceration, veronica multiple trauma, sprain, strain. Data reviewed: vital signs, nurses notes, lab test result(s), EKG, radiologic studies. Consideration of Admission/Observation Patient was admitted/placed on observation. Escalation of care including admission/observation considered. I considered the following discharge prescriptions or medication management in the emergency department Medications were administered in the Emergency Department. See MAR. Independent interpretation of the following test(s) in the Emergency Department EKG: See my EKG interpretation above. Test considered but Not performed: Ultrasound no 2 decho. Care significantly affected by the following chronic conditions: Hypertension, Obesity, asthma, brochitis. 01/05 05:40 Order name: Basic Metabolic Panel; Complete Time: 07:12 cp 01/05 05:40 Order name: CBC with Diff; Complete Time: 06:46 cp 01/05 05:40 Order name: LFT's; Complete Time: 07:12 cp 01/05 05:40 Order name: Magnesium; Complete Time: 07:12 cp 01/05 05:40 Order name: NT PRO-BNP; Complete Time: 07:12 cp 01/05 05:40 Order name: PT-INR; Complete Time: 07:12 cp 01/05 05:40 Order name: Troponin HS; Complete Time: 07:12 cp 01/05 05:54 Order name: Urinalysis w/ reflexes veronica 01/05 08:40 Order name: Basic Metabolic Panel EDMS 01/05 08:40 Order name: Basic Metabolic Panel EDMS 01/05 08:40 Order name: Basic Metabolic Panel EDMS 01/05 08:40 Order name: Basic Metabolic Panel EDMS 01/05 08:40 Order name: CBC with Automated Diff EDMS 01/05 08:40 Order name: CBC with Automated Diff EDMS 01/05 08:40 Order name: CBC with Automated Diff EDMS 01/05 08:40 Order name: CBC with Automated Diff EDMS 01/05 08:40 Order name: Magnesium EDMS 01/05 08:40 Order name: Magnesium EDMS 01/05 08:40 Order name: Magnesium EDMS 01/05 08:40 Order name: Magnesium EDMS 01/05 08:40 Order name: Phosphorus EDMS 01/05 08:40 Order name: Phosphorus EDMS 01/05 08:40 Order name: Phosphorus EDMS 01/05 08:40 Order name: Phosphorus EDMS 01/05 08:40 Order name: Troponin High Sensitivity [facility] 01/05 08:40 Order name: Troponin High Sensitivity [facility] 01/05 08:40 Order name: Troponin High Sensitivity [facility] 01/05 05:40 Order name: XRAY Chest (1 view) 01/05 05:41 Order name: XRAY Knee RIGHT 3 view 01/05 05:48 Order name: Chest Abd Pelvis Wo Con [facility] 01/05 05:49 Order name: Head C Spine Mpr Wo Con [facility] 01/05 08:54 Order name: ERT ORTHOSTATIC V/S [facility] 01/05 08:40 Order name: Physical Therapy Consult [facility] 01/05 05:40 Order name: Cardiac monitoring; Complete Time: 05:47 cp 01/05 05:40 Order name: EKG - Nurse/Tech; Complete Time: 05:47 cp 01/05 05:40 Order name: IV Saline Lock; Complete Time: 05:47 cp 01/05 05:40 Order name: Labs collected and sent; Complete Time: 05:47 cp 01/05 05:40 Order name: O2 Per Protocol; Complete Time: 05:47 cp 01/05 05:40 Order name: O2 Sat Monitoring; Complete Time: 05:47 01/05 06:14 Order name: Misc. Order: RECOLLECT LIGHT GREEN AND BLUE; Complete Time: 06:42 rv1 EC:45 Rate is 75 beats/min. Rhythm is regular. SD interval is prolonged at 224 msec. QRS cp interval is normal. QT interval is normal. Interpreted by me. Reviewed by me. Administered Medications: 06:00 Drug: Ondansetron IVP 4 mg IVP once; over 2 minutes Route: IVP; Site: left forearm; lg3 06:31 Follow up: Response: No adverse reaction; Marked relief of symptoms lg3 06:00 Drug: Famotidine IVP 20 mg IVP once; dilute with 10 mL 0.9% NaCl; give over 2 minutes lg3 Route: IVP; Site: left forearm; 06:31 Follow up: Response: No adverse reaction; Marked relief of symptoms lg3 11:59 Not Given (Other Intervention Used): ns 0.9% 500 ml 500 ml IV at 125 ml/hr once ph 12:00 Not Given (Other Intervention Used): ns 0.9% 500 ml 500 ml IV at 1 bolus once; to be ph given as a bolus over 30 minutes Disposition: 06:40 Co-signature as Attending Physician, Oscar Aldridge MD I agree with the assessment and veronica plan of care. Disposition Summary: 01/05/25 06:48 Hospitalization Ordered Notes: Hospitalization Status: Inpatient Admission veronica Provider: Luis Shell cha Condition: Fair veronica Problem: new veronica Symptoms: have improved veronica Bed/Room Type: Standard veronica Location: Telemetry/MedSurg (observation)(01/05/25 19:10) sp Room Assignment: 214(01/05/25 19:10) sp Diagnosis - Hypotension, unspecified - resolved veronica - Syncope Near veronica - Fall on same level, unspecified veronica - Contusion of right knee veronica Forms: - Medication Reconciliation Form veronica - SBAR form veronica - Leadership Thank You Letter veronica Signatures: Dispatcher [employer] EDMS Samia Perea Corey, MD MD cha Pinkerton, Shawna sp Page, Corey, PA PA cp Baxter, Heather, RN RN Guero, WILBERTO Doherty RN 3 Kathy Patterson [facility] Aaliyah Bose RN ph Corrections: (The following items were deleted from the chart) 05:41 05:41 BASIC METABOLIC PANEL+C.LAB.BRZ ordered. EDMS EDMS 05:41 05:41 CBC+H.LAB.BRZ ordered. EDMS EDMS 05:41 05:41 HEPATIC FUNCTION+C.LAB.BRZ ordered. EDMS EDMS 05:41 05:41 MAGNESIUM+C.LAB.BRZ ordered. EDMS EDMS 05:41 05:41 PROBNP+C.LAB.BRZ ordered. EDMS EDMS 05:41 05:41 PROTIME (+INR)+COAG.LAB.BRZ ordered. EDMS EDMS 05:41 05:41 Troponin High Sensitivity+C.LAB.BRZ ordered. EDMS EDMS 05:41 05:41 Chest Single View+RAD.RAD.BRZ ordered. EDMS EDMS 05:41 05:41 Head C Spine Cap Wo Con+CT.RAD.BRZ ordered. EDMS EDMS 06:14 05:41 Urinalysis W/Microscopic+U.LAB.BRZ ordered. EDMS EDMS 08:49 06:48 Telemetry/MedSurg (Inpatient) veronica hb 08:49 06:48 veronica hb 10:16 08:49 HLD3 hb bd 19:10 08:49 [facility] ER HOLD hb sp 19:10 10:16 ERHOLD- bd sp
--- NOTE | 2025-01-05 06:49 | ER ---
Nurse's Notes [facility] Name: Gabriel Elizalde Age: 84 yrs Sex: Male : 1940 Arrival Date: 01/05/2025 Time: 05:33 Bed 3 Private MD: Diagnosis: Hypotension, unspecified-resolved;Syncope Near;Fall on same level, unspecified;Contusion of right knee Presentation: 01/05 05:38 Chief complaint: Patient states: nausea, dizziness, chest pressure X2 days. near lg3 syncopal episode 1hr [employer] landing on right knee and left forehead. complaints of pain to right knee. denies LOC. Coronavirus screen: Client denies travel out of the [place] in the last 14 days. At this time, the client does not indicate any symptoms associated with coronavirus-19. Ebola Screen: No symptoms or risks identified at this time. Initial Sepsis Screen: Does the patient meet any 2 criteria? No. Patient's initial sepsis screen is negative. Does the patient have a suspected source of infection? No. Patient's initial sepsis screen is negative. Risk Assessment: Do you want to hurt yourself or someone else? Patient reports no desire to harm self or others. Onset of symptoms is unknown. 05:38 Method Of Arrival: [facility] lg3 05:38 Acuity: LIZET 3 lg3 Triage Assessment: 05:42 General: Appears in no apparent distress. comfortable, Behavior is calm, cooperative. lg3 Pain: Complains of pain in chest and right knee Pain does not radiate. Quality of pain is described as pressure. EENT: No deficits noted. No signs and/or symptoms were reported regarding the EENT system. Neuro: No deficits noted. White Agitation-Sedation Scale (RASS): 0 - Alert and Calm Level of Consciousness is awake, alert, obeys commands, Oriented to person, place, time, situation, Reports dizziness. Cardiovascular: Reports chest pressure Heart tones S1 S2 present Capillary refill < 3 seconds Clubbing of nail beds is absent JVD is absent Patient's skin is warm and dry. Chest pain is described as mild, quality is pressure, is located in substernal area. Respiratory: No deficits noted. Airway is patent Respiratory effort is even, unlabored, Respiratory pattern is regular, symmetrical. GI: No deficits noted. No signs and/or symptoms were reported involving the gastrointestinal system. : No signs and/or symptoms were reported regarding the genitourinary system. Derm: Skin is intact, is healthy with good turgor, Skin is dry, Skin is normal, Skin temperature is warm Wound noted right knee and forehead. Musculoskeletal: No deficits noted. No signs and/or symptoms reported regarding the musculoskeletal system. Circulation, motion, and sensation intact. Range of motion: intact in all extremities. Historical: - Allergies: 05:42 PENICILLINS; lg3 05:42 TETRACYCLINES; lg3 - Home Meds: 05:42 losartan Oral [Active]; clonazepam Oral [Active]; lg3 - PMHx: 05:42 Asthma; Bronchitis; Hernia; Hypertension; lg3 - PSHx: 05:42 Cholecystectomy; hernia repair; lg3 - Immunization history:: Adult Immunizations up to date. - Infectious Disease History:: Denies. - Social history:: Smoking status: Patient denies any tobacco usage or history of. Patient/guardian denies using alcohol, street drugs. Screenin:46 [facility] ED Fall Risk Assessment (Adult) History of falling in the last 3 months, lg3 including since admission Yes- single mechanical fall (1 pt) Confusion or Disorientation No (0 pts) Intoxicated or Sedated No (0 pts) Impaired Gait No (0 pts) Mobility Assist Device Used No (0 pt) Altered Elimination No (0 pt) Score/Fall Risk Level 0 - 2 = Low Risk Oriented to surroundings, Maintained a safe environment, Educated pt \T\ family on fall prevention, incl call for assistance when getting out of bed, Assessed \T\ reinforced patient's understanding of fall precautions. Abuse screen: Denies threats or abuse. Denies injuries from another. Nutritional screening: No deficits noted. Tuberculosis screening: No symptoms or risk factors identified. Assessment: 05:46 General: see triage assessment. lg3 08:00 Reassessment: Patient appears in no apparent distress at this time. Patient and/or hb family updated on plan of care and expected duration. Pain level reassessed. Patient is alert, oriented x 3, equal unlabored respirations, skin warm/dry/pink. 09:00 Reassessment: Patient appears in no apparent distress at this time. Patient and/or hb family updated on plan of care and expected duration. Pain level reassessed. Patient is alert, oriented x 3, equal unlabored respirations, skin warm/dry/pink. Vital Signs: 05:38 BP 125 / 47; Pulse 72; Resp 16 S; Temp 97.5(O); Pulse Ox 100% on R/A; Weight 85.73 kg; lg3 Height 5 ft. 9 in. (R); Pain 2/10; 06:04 BP 116 / 56; Pulse 68; Resp 16 S; Pulse Ox 99% on R/A; lg3 08:00 BP 136 / 76; Pulse 84; Resp 15; Pulse Ox 97% on R/A; hb 05:38 Body Mass Index 27.91 (85.73 kg, 175.26 cm) lg3 05:38 Pain Scale: Adult lg3 ED Course: 05:37 Patient arrived in ED. lg3 05:37 Bessy Jack RN is Primary Nurse. lg3 05:39 Oscar Cross PA is PHCP. cp 05:39 Oscar Aldridge MD is Attending Physician. cp 05:42 Triage completed. lg3 05:42 Arm band placed on right wrist. lg3 05:46 Patient has correct armband on for positive identification. Placed in gown. Bed in low lg3 position. Call light in reach. Side rails up X2. Client placed on continuous cardiac and pulse oximetry monitoring. NIBP monitoring applied. equipment monitor phototypesetting on. Door closed. Noise minimized. Warm blanket given. Pillow given. Family accompanied patient. 05:46 EKG done, by ED staff, reviewed by Oscar ERICKSON. Maintain EMS IV. Dressing intact. lg3 Good blood return noted. Site clean \T\ dry. Gauge \T\ site: 20L forearm. 06:12 XRAY Chest (1 view) In Process Unspecified. EDMS 06:12 XRAY Knee RIGHT 3 view In Process Unspecified. EDMS 06:32 Chest Abd Pelvis Wo Con In Process Unspecified. EDMS 06:32 Head C Spine Mpr Wo Con In Process Unspecified. EDMS 06:48 Luis Shell is Hospitalizing Provider. veronica 07:03 Primary Nurse role handed off by Bessy Jack, RN bd 08:24 Urinalysis w/ reflexes Sent. ph 09:30 Provided Education on: need for admit, fall precautions. hb 09:30 No provider procedures requiring assistance completed. Patient admitted, IV remains in hb place. Administered Medications: 06:00 Drug: Ondansetron IVP 4 mg IVP once; over 2 minutes Route: IVP; Site: left forearm; lg3 06:31 Follow up: Response: No adverse reaction; Marked relief of symptoms lg3 06:00 Drug: Famotidine IVP 20 mg IVP once; dilute with 10 mL 0.9% NaCl; give over 2 minutes lg3 Route: IVP; Site: left forearm; 06:31 Follow up: Response: No adverse reaction; Marked relief of symptoms lg3 11:59 Not Given (Other Intervention Used): ns 0.9% 500 ml 500 ml IV at 125 ml/hr once ph 12:00 Not Given (Other Intervention Used): ns 0.9% 500 ml 500 ml IV at 1 bolus once; to be ph given as a bolus over 30 minutes Medication: 09:00 VIS not applicable for this client. Outcome: 06:48 Decision to Hospitalize by Provider. [facility] 09:30 Admitted to ER Hold. Please see [facility] for further documentation. 09:30 Condition: stable 09:30 Instructed on the need for admit, Demonstrated understanding of instructions, 20:25 Patient left the ED. lg3 Signatures: Dispatcher [employer] EDMS Samia Perea Corey, MD MD cha Hall, Patricia, RN RN Oscar Cross PA PA cp Baxter, Heather, Bessy Oneill RN RN RN lg3
[2025-01-05 06:52] LABS: PT Prothrombin Time 11.6 SECONDS (10-13.0); Protime INR 1.02
[2025-01-05 07:09] LABS: Albumin 3.4 g/dL (3.4-5.0); Albumin/Globulin Ratio 1.1 (1.1-1.8); Bilirubin Direct 0.2 mg/dL (0-0.2); Bilirubin Indirect, Calculated 0.4 mg/dL (0.2-0.8); Bilirubin Total 0.6 mg/dL (0.2-1.0); Globulin 3.2 g/dL (2.3-3.5); Protein, Total 6.6 g/dL (6.4-8.2); Troponin High Sensitivity 12.7 pg/mL (<58.9)
--- NOTE | 2025-01-05 07:11 | RAD REPORT ---
EXAM: CT brain without contrast HISTORY: SYNCOPE COMPARISON: None TECHNIQUE: Multiple contiguous axial images were obtained and a CT of the brain without contrast. Sag ittal and coronal reformats were performed. FINDINGS: No evidence of hydrocephalus, intracranial hemorrhage, or extra-axial fluid collection. The brain is normal in morphology. The calvarium is intact. Polypoidal mucosal thickening at the base of left maxillary sinus. Sebaceous cyst along the left occipital/retromastoid scalp. Mastoid air cells are essentially clear. IMPRESSION: No evidence of acute intracranial abnormality. EXAM: CT of the cervical spine without contrast HISTORY: SYNCOPE COMPARISON: None TECHNIQUE: Multiple contiguous axial images were obtained in a CT of the cervical spine without contr ast. Sagittal and coronal reformats were performed. FINDINGS: The vertebral bodies demonstrate normal height and alignment. No evidence of acute fracture or subluxation.. Changes of diffuse idiopathic skeletal hyperostosis. Mild multilevel endplate and facet remodeling without significant canal or foraminal stenosis. No prevertebral soft tissue swelli ng is seen. The posterior facets are well aligned. Normal alignment of the skull base with the cervical spine is seen. The lung apices are unremarkable. IMPRESSION: No evidence of acute osseous abnormality of the cervical spine. Chronic findings as above.
--- NOTE | 2025-01-05 07:20 | RAD REPORT ---
EXAM: CT CHEST, ABDOMEN AND PELVIS WITHOUT CONTRAST CLINICAL INDICATION: Male, 84 years old. [facility] MAIN FALL TECHNIQUE: CT chest, abdomen and pelvis was performed, without IV contrast, as per department protoco l. Axial, sagittal and coronal reconstructions were obtained. One or more of the following dose reduction techniques were used: Automated exposure control, adjustment of the mA and/or kV according to the patient size, and/or iterative reconstruction. Unless otherwise specified, incidental findings do not require dedicated imaging follow-up. COMPARISON: 05/27/2022 CT abdomen and pelvis FINDINGS: The lack of intravenous contrast limits the sensitivity of this exam for evaluation of solid visceral organs, vascular structures, and retroperitoneum. Chest: LOWER NECK/CHEST WALL: Visualized thyroid gland and soft tissues are normal. LUNGS AND AIRWAYS: Elevation of the right hemidiaphragm. Airways are clear. No evidence of airspace o r interstitial process, apart from platelike right basilar atelectasis.. No nodules. PLEURA: No pleural effusion. No pneumothorax. Hemidiaphragms are normally positioned. MEDIASTINUM AND LYMPH NODES: No mediastinal mass or fluid collection. Normal size mediastinal, hilar, and axillary lymph nodes. THORACIC AORTA: Normal caliber and configuration. PULMONARY ARTERIES: Normal caliber. HEART: Unremarkable. Abdomen/Pelvis LIVER: Normal in size and contour. No focal lesion. GALLBLADDER/BILE DUCTS: Status post cholecystectomy. 9 No biliary ductal dilatation. PANCREAS: No mass, ductal dilation, or puja-pancreatic fluid. SPLEEN: Normal size. No focal lesion. ADRENALS: Normal; no mass. KIDNEYS AND URETERS: Normal size and contour. No hydronephrosis. Right interpolar cortical 2.5 cm cys t. GASTROINTESTINAL TRACT: Stomach is non-dilated. Small bowel has normal course and caliber. No colonic wall thickening or pericolonic inflammatory changes. Moderate stool burden throughout the colon. PERITONEUM: No free fluid. LYMPH NODES: No lymphadenopathy. ABDOMINAL AORTA AND OTHER VESSELS: Normal caliber aorta and IVC. URINARY BLADDER: Normal contour. REPRODUCTIVE ORGANS: No pathologic process. MUSCULOSKELETAL: No acute or suspicious osseous abnormality. ADDITIONAL FINDINGS: Normal right inguinal hernia containing fat, with sequelae of prior repair. Hete rogeneous mass along the left posterior flank subcutaneous soft tissues, containing macroscopic as well as soft tissue density elements, measuring 8.7 x 5.5 x 10.7 cm in greatest transverse, AP, and C C dimensions. This measures 8.5 x 4.9 x 8.8 cm on prior exam. IMPRESSION: No acute or traumatic abnormalities in the chest, abdomen, or pelvis. Heterogeneous left subcutaneous flank mass up to 10.7 cm with heterogeneous soft tissue and macroscop ic fat components, shows mild interval increase in size since 2021. Differential considerations include an atypical lipoma versus liposarcoma. Surgical oncology evaluation is recommended if not alr shelley obtained.
--- NOTE | 2025-01-05 07:38 | RAD REPORT ---
EXAMINATION: ONE VIEW CHEST XR CLINICAL INDICATION: Male, 84 years old.,CHEST PAIN TECHNIQUE: Frontal chest projection is submitted. Examination is limited by patient positioning and t echnique. COMPARISON: 06/11/2022 FINDINGS: The lungs are well inflated and clear apart from right basilar atelectasis. Elevation of right hemidi aphragm.. No pneumothorax or sizable effusion. The heart is normal in size. Mediastinal contours are unremarkable. IMPRESSION: No acute intrathoracic abnormalities.
--- NOTE | 2025-01-05 07:53 | RAD REPORT ---
EXAM: XR Knee Right 3 View HISTORY: HS MAIN fall;Pain Bed Name: 3 COMPARISON: None TECHNIQUE: 2 views of the right knee were obtained. FINDINGS: No knee effusion is seen. There is no evidence of acute fracture or dislocation. Mild dege nerative changes are seen along the weightbearing compartments. No soft tissue swelling or other soft tissue abnormality is present. IMPRESSION: No evidence of acute osseous abnormality. Mild degenerative changes.
[2025-01-05] MEDS ORDERED: ACETAMINOPHEN 325 MG TABLET PO PRN (08:29)
[2025-01-05 08:30] LABS: Specific Gravity 1.008 (1.005-1.030); Urine Bilirubin NEGATIVE (Negative); Urine Blood Negative (Negative); Urine Clarity Clear (Clear); Urine Color Colorless (Yellow); Urine Glucose NEGATIVE (Negative); Urine Ketones NEGATIVE (Negative); Urine Microscopic Reflex YN NO UMIC; Urine Nitrite NEGATIVE (Negative); Urine Protein NEGATIVE (Negative); Urine Urobilinogen Normal (Normal); Urine pH 7.5 (5.0-7.0)
--- NOTE | 2025-01-05 08:51 | P.HP ---
Certification for Inpatient Patient admitted to: Observation With expected LOS: <2 Midnights Practitioner: I am a practitioner with admitting privileges, knowledge of patient current condition, hospital course, and medical plan of care. Services: Services provided to patient in accordance with Admission requirements found in Title 42 Section 412.3 of the Code of Federal Regulations Patient History Date of Service: 01/05/25 Reason for admission: Trauma fall History of Present Illness: Gabriel Elizalde is an 84 year old male with pmhx asthma, Bronchitis, HTN, and right inguinal hernia who presents to the ED after a fall at home last night. He reports getting up and walking to the bathroom to get water and walked back to his bed then turned around to walk back to the bathroom when he fell on the floor hitting his head. He was able to scoot to the toilet and sit on the toilet but then reports passing out for a short time. No one witnessed his "passing out". He reports having "passed out" several years ago. He reports a change to his blood pressure medication a few months ago and is not faithful to check his blood pressure daily. Laboratory evaluation significant for WBC 11.9, neutrophils 83.5, sodium 132, GFR 72, glucose 113. CT head and C-spine reports " No evidence of hydrocephalus, intracranial hemorrhage, or extra-axial fluid collection. The brain is normal in morphology. The calvarium is intact. Polypoidal mucosal thickening at the base of left maxillary sinus. Sebaceous cyst along the left occipital/retromastoid scalp. Mastoid air cells are essentially clear.The vertebral bodies demonstrate normal height and alignment. No evidence of acute fracture or subluxation. Changes of diffuse idiopathic skeletal hyperostosis. Mild multilevel endplate andfacet remodeling without significant canal or foraminal stenosis. No prevertebral soft tissue swelling is seen." CT CAP Reports "No acute or traumatic abnormalities in the chest, abdomen, or pelvis. Heterogeneous left subcutaneous flank mass up to 10.7 cm with heterogeneous soft tissue and macroscopic fat components, shows mild interval increase in size since 2021. Differential considerations include an atypical lipoma versus liposarcoma. Surgical oncology evaluation is recommended if not already obtained." Chest x-ray reports "The lungs are well inflated and clear apart from right basilar atelectasis. Elevation of right hemidiaphragm.. No pneumothorax or sizable effusion. The heart is normal in size. Mediastinal contours are unremarkable" Gabriel will be admitted to hospitalist service for further evaluation and treatment of trauma fall, syncopal episode. Allergies Fish Containing Products Allergy (Verified 06/16/22 09:27) Eye Swelling Penicillins Allergy (Verified 06/16/22 09:27) Rash, mouth sores Poultry Allergy (Verified 06/16/22 09:27) Dry Mouth tetracycline Allergy (Verified 06/16/22 09:27) Hives Home Medications: Clorazepate Dipotassium [Tranxene T-Tab] 7.5 mg PO PRN PRN 03/23/13 Benzocaine [Orajel] 1 korina MM PRN PRN 06/11/22 Docusate [Colace Cap] 100 mg PO DAILY 06/11/22 Losartan Potassium [Cozaar] 100 mg PO DAILY 06/11/22 Simethicone [Mylicon Tab] 80 mg PO Q6H PRN 06/11/22 - Past Medical/Surgical History Diabetic: No -: HTN, asthma, arthritis,allergies, anxiety -: SX remove prostate - Family History Family History: Reviewed- Non-Contributory - Social History Smoking Status: Never smoker Alcohol use: No CD- Drugs: No Caffeine use: Yes Review of Systems Other: per HPI Physical Examination - Physical Exam General: Alert, In no apparent distress, Oriented x3 HEENT: Normocephalic, Other (left forehead abrasion) Neck: Supple, 2+ carotid pulse no bruit Respiratory: Clear to auscultation bilaterally, Normal air movement Cardiovascular: Normal pulses, Regular rate/rhythm Capillary refill: <2 Seconds Gastrointestinal: Normal bowel sounds, Soft and benign Musculoskeletal: No clubbing Integumentary: No rashes Neurological: Normal speech, Normal tone - Studies Laboratory Data (last 24 hrs) 01/05/25 01/05/25 01/05/25 06:34 06:34 05:58 WBC 11.90 H Hgb 14.0 Hct 40.6 Plt Count 139 L PT 11.6 INR 1.02 Sodium 132 L Potassium 4.0 BUN 15 Creatinine 1.04 Glucose 113 H Magnesium 2.0 Total Bilirubin 0.6 AST 13 L ALT 18 Alkaline Phosphatase 113 Assessment and Plan - Plan Assessment and Plan Trauma fall Forehead abrasion -CT head and C-spine reports " No evidence of hydrocephalus, intracranial hemorrhage, or extra-axial fluid collection. The brain is normal in morphology. The calvarium is intact. Polypoidal mucosal thickening at the base of left maxillary sinus. Sebaceous cyst along the left occipital/retromastoid scalp. Mastoid air cells are essentially clear.The vertebral bodies demonstrate normal height and alignment. No evidence of acute fracture or subluxation. Changes of diffuse idiopathic skeletal hyperostosis. Mild multilevel endplate andfacet remodeling without significant canal or foraminal stenosis. No prevertebral soft tissue swelling is seen." -Orthostatic vitals -ECHO ordered -continuous telemetry -monitor for hypotension as changes were made to losartan hyponatremia -gentle IVF HTN -Continue home medications as appropriate DVT ppx SCD Full code LOS 24 hour OBS Discharge Plan: Home Plan to discharge in: 24 Hours - Advance Directives Does patient have a Living Will: No Does patient have a Durable POA for Healthcare: No
[2025-01-05] MEDS: NA CHLORIDE 0.9% 1,000 ML IV SCH (09:00)
[2025-01-05] MEDS ORDERED: NA CHLORIDE 0.9% 1,000 ML ONE (10:09)
[2025-01-05 10:20] VITALS: BMI 27.8
[2025-01-05 20:31] VITALS: O2SAT 97
[2025-01-06 04:33] LABS: Absolute Basophils 0.1 K/uL (0-0.5); Absolute Eosinophils 0.1 K/uL (0-0.5); Absolute Lymphocytes (CBC) 1.3 K/uL (0.7-4.9); Absolute Monocytes 0.8 K/uL (0.1-1.3); Basophils % 1.7 % (0-1.3); Eosinophils % 0.9 % (0-4.4); Hematocrit 37.6 % (39.6-49.0); Hemoglobin 13.2 g/dL (13.6-17.9); Lymphocytes % 18.5 % (15.3-44.8); MCH 32.4 pg (27.0-35.0); MCHC 35.1 g/dL (32.0-36.0); MCV 92.3 fL (80-100); MPV 9.2 fL (7.6-11.3); Monocytes % 10.4 % (3.3-12.3); Neutrophils % 68.5 % (41.7-73.7); Nucleated Red Blood Cells % 0.1 % (0-0); Platelets 139 thou/uL (152-406); RBC Red Blood Cell Count 4.07 M/uL (4.33-5.43); Red Cell Distribution Width 14.4 % (12.1-15.2)
[2025-01-06 04:45] LABS: Anion Gap 7.9 mEq/L (5.0-15.0); Magnesium 1.9 mg/dL (1.6-2.4); Phosphorus 2.6 mg/dL (2.5-4.9); Potassium 3.9 mEq/L (3.5-5.1)
[2025-01-06] MEDS ORDERED: SIMETHICONE 80 MG CHEWABLE TAB PO PRN (07:18)
[2025-01-06] MEDS: DOCUSATE NA 100 MG CAP PO SCH (09:05)
[2025-01-06] MEDS: LOSARTAN POTASSIUM 50 MG TABLET PO SCH (09:05)
--- NOTE | 2025-01-06 16:29 | P.DS ---
Admission Date: 01/05/25 Discharge Date: 01/06/25 Disposition: ROUTINE DISCHARGE Discharge Condition: GOOD Reason for Admission: Trauma fall Brief History of Present Illness: Diagnosis Trauma fall Forehead abrasion hyponatremia-resolved HTN HPI 01/05/2025 Gabriel Elizalde is an 84 year old male with pmhx asthma, Bronchitis, HTN, and right inguinal hernia who presents to the ED after a fall at home last night. He reports getting up and walking to the bathroom to get water and walked back to his bed then turned around to walk back to the bathroom when he fell on the floor hitting his head. He was able to scoot to the toilet and sit on the toilet but then reports passing out for a short time. No one witnessed his "passing out". He reports having "passed out" several years ago. He reports a change to his blood pressure medication a few months ago and is not faithful to check his blood pressure daily. Laboratory evaluation significant for WBC 11.9, neutrophils 83.5, sodium 132, GFR 72, glucose 113. CT head and C-spine reports " No evidence of hydrocephalus, intracranial hemorrhage, or extra-axial fluid collection. The brain is normal in morphology. The calvarium is intact. Polypoidal mucosal thickening at the base of left maxillary sinus. Sebaceous cyst along the left occipital/retromastoid scalp. Mastoid air cells are essentially clear.The vertebral bodies demonstrate normal height and alignment. No evidence of acute fracture or subluxation. Changes of diffuse idiopathic skeletal hyperostosis. Mild multilevel endplate andfacet remodeling without significant canal or foraminal stenosis. No prevertebral soft tissue swelling is seen." CT CAP Reports "No acute or traumatic abnormalities in the chest, abdomen, or pelvis. Heterogeneous left subcutaneous flank mass up to 10.7 cm with heterogeneous soft tissue and macroscopic fat components, shows mild interval increase in size since 2021. Differential considerations include an atypical lipoma versus liposarcoma. Surgical oncology evaluation is recommended if not already obtained." Chest x-ray reports "The lungs are well inflated and clear apart from right basilar atelectasis. Elevation of right hemidiaphragm.. No pneumothorax or sizable effusion. The heart is normal in size. Mediastinal contours are unremarkable" Gabriel will be admitted to hospitalist service for further evaluation and treatment of trauma fall, syncopal episode. Hospital Course: Gabriel was admitted and treated for the following diagnoses: Trauma fall Forehead abrasion Hyponatremia-Resolved HTN -CT head and C-spine reports " No evidence of hydrocephalus, intracranial hemorrhage, or extra-axial fluid collection. The brain is normal in morphology. The calvarium is intact. Polypoidal mucosal thickening at the base of left maxillary sinus. Sebaceous cyst along the left occipital/retromastoid scalp. Mastoid air cells are essentially clear.The vertebral bodies demonstrate normal height and alignment. No evidence of acute fracture or subluxation. Changes of diffuse idiopathic skeletal hyperostosis. Mild multilevel endplate and facet remodeling without significant canal or foraminal stenosis. No prevertebral soft tissue swelling is seen." -Patient was evaluated with Orthostatic vitals WNL, ECHO with results pending, continuous telemetry with no events this admission -Patient was monitored for hypotension as changes were made to losartan, BP remained WNL -Patient tolerated gentle IVF to resolve hyponatremia -Continued home medications as appropriate, tolerated the new dose of Losartan this admission, continue to monitor at home On 01/06/2025, Juvenal was seen on morning rounds hemodynamically stable and conversing well. Blood pressure has been stable this admission. Recent change to losartan dose was a concern by family members and was tolerated this admission. Echocardiogram performed but has not resulted and can be reviewed by cardiology at outpatient visit. Continue home medications as prescribed while checking blood pressure twice a day to get accurate losartan dosing. Physical therapy consulted and deemed ready for discharge as he ambulated stable with walked 250'. Education to ambulate when he is not feeling dizzy and to continue to use his walker. Physical Exam General: Alert and Oriented x3, NAD HEENT: Normocephalic, Other (left forehead abrasion nose abrasion) Neck: Supple, 2+ carotid pulse no bruit Respiratory: Clear BBS, Normal air movement, on RA Cardiovascular: Normal pulses, RRR, S1 S2 present Capillary refill: <2 Seconds Gastrointestinal: Normal bowel sounds, Soft and benign on palpation Musculoskeletal: No clubbing Integumentary: No rashes, (left forehead abrasion nose abrasion) Neurological: Normal speech, Normal tone Vital Signs/Physical Exam: Temp Pulse Resp BP Pulse Ox 97.7 F 55 16 160/74 H 99 01/06/25 12:00 01/06/25 12:01/06/25 12:25 12:00 01/06/25 12:00 Laboratory Data at Discharge: WBC 7.30 thou/uL (4.3-10.9) 01/06/25 04:06 Hgb 13.2 g/dL (13.6-17.9) L 01/06/25 04:06 Hct 37.6 % (39.6-49.0) L 01/06/25 04:06 Plt Count 139 thou/uL (152-406) L 01/06/25 04:06 PT 11.6 SECONDS (10-13.0) 01/05/25 06:34 INR 1.02 01/05/25 06:34 Sodium 135 mEq/L (136-145) L 01/06/25 04:06 Potassium 3.9 mEq/L (3.5-5.1) 01/06/25 04:06 BUN 12 mg/dL (7-18) 01/06/25 04:06 Creatinine 0.83 mg/dL (0.70-1.30) 01/06/25 04:06 Glucose 99 mg/dL (74-106) 01/06/25 04:06 Phosphorus 2.6 mg/dL (2.5-4.9) 01/06/25 04:06 Magnesium 1.9 mg/dL (1.6-2.4) 01/06/25 04:06 Total Bilirubin 0.6 mg/dL (0.2-1.0) 01/05/25 06:34 AST 13 U/L (15-37) L 01/05/25 06:34 ALT 18 U/L (16-61) 01/05/25 06:34 Alkaline Phosphatase 113 U/L (45-117) 01/05/25 06:34 Home Medications: Clorazepate Dipotassium [Tranxene T-Tab] 7.5 mg PO PRN PRN 03/23/13 Benzocaine [Orajel] 1 korina MM PRN PRN 06/11/22 Docusate [Colace Cap*] 100 mg PO DAILY 06/11/22 Losartan Potassium [Cozaar*] 100 mg PO DAILY 06/11/22 Simethicone [Mylicon*] 80 mg PO Q6H PRN 06/11/22 Physician Discharge Instructions: 1. Please call and schedule a follow-up appointment with your PCP in 3-5 days - Please follow-up with your PCP for medication refills/adjustments 2. Please call and schedule a follow-up appointment with your [facility] or Dr. Sanchez in 1 to 2 weeks -Echocardiogram performed during this admission, results are pending and can be reviewed by your [employer] or Dr. Curry 3. Continue heart healthy diet 4. activity restrictions fall precaution, please use walker and be sure you are not dizzy prior to walking 5. Return to the ED if symptoms worsen Continue medications as prescribed, check blood pressure twice daily to provide to your PCP or cardiology and better determine the change to your losartan is appropriate. Diet: Regular Activity: Fall precautions Followup: Dyllan Roman, ROBBIE [Primary Care Provider] -
[2025-01-06 16:41] VITALS: BP 165/76; TEMP 97.4
--- NOTE | 2025-01-09 09:27 | ECHO ---
HEIGHT: 5 ft 9 in WEIGHT: 189 lb 0.037 oz DATE OF STUDY: 01/06/[address]: Aleah Dalal NP 2-DIMENSIONAL: YES M.MODE: YES DOPPLER: YES COLOR FLOW: YES TDS: PORTABLE: YES DEFINITY: BUBBLE STUDY: DIAGNOSIS: FALL CARDIAC HISTORY: CATHERIZATION: SURGERY: PROSTHETIC VALVE: PACEMAKER: MEASUREMENTS (cm) DIASTOLIC (NORMALS) SYSTOLIC (NORMALS) IVSd 1.0 (0.6-1.2) LA Diam 3.8 (1.9-4.0) LVEF 60-65% LVIDd 5.0 (3.5-5.7) LVIDs 3.1 (2.0-3.5) %FS 38% LVPWd 1.2 (0.6-1.2) Ao Diam 3.0 (2.0-3.7) 2 DIMENSIONAL ASSESSMENT: RIGHT ATRIUM: NORMAL LEFT ATRIUM: NORMAL RIGHT VENTRICLE: NORMAL LEFT VENTRICLE: NORMAL TRICUSPID VALVE: TRACE TRICUSPID REGURGITATION MITRAL VALVE: MILD MITRAL REGURGITATION PULMONIC VALVE: NORMAL AORTIC VALVE: MILD AORTIC INSUFFICIENCY PERICARDIAL EFFUSION: NONE AORTIC ROOT: NORMAL LEFT VENTRICULAR WALL MOTION: NORMAL DOPPLER/COLOR FLOW: SEE BELOW COMMENTS: 1. NORMAL LEFT VENTRICULAR EJECTION FRACTION 60-65% WITH NORMAL WALL MOTION 2. GRADE I DIASTOLIC DYSFUNCTION 3. MILD MITRAL REGURGITATION 4. MILD AORTIC INSUFFICIENCY TECHNOLOGIST: MARIYA GARCIA
== END 2025-01-06 18:36 | disposition home or self-care (01) ==
LOC: ER 05:33 → ERHOLD 08:29 → 2ND 19:34
PROVIDERS: ADMIT Internal Medicine; ATTEND Internal Medicine
DX: R55 Syncope and collapse (principal); I95.9 Hypotension, unspecified; S80.01XA Contusion of right knee, initial encounter; S00.81XA Abrasion of other part of head, initial encounter; W18.39XA Other fall on same level, initial encounter; Y93.89 Activity, other specified; Y92.013 Bedroom of single-family (private) house as the place of occurrence of the external cause; E87.1 Hypo-osmolality and hyponatremia; I10 Essential (primary) hypertension; L72.3 Sebaceous cyst; Z88.0 Allergy status to penicillin; Z88.1 Allergy status to other antibiotic agents
CPT/HCPCS: 93005; 93306; 85025 ×2; 80048 ×2; 36415; 83735 ×2; 84100; 85610; 80076; 81003; 84484 ×3; 83880; 70450; 71250; 72125; 74176; 71045; 73562; 97112; 97116 ×2; 97161; 97530; J2405; J7030; G0378